=== PATIENT | male | born 1970 | race African-American/Black ===

== ENCOUNTER 2016-07-03 01:32 | Emergency (ER) | payer MEDICARE, OTHER ==
[~2016-07-03] VITALS: Ht 190.5 cm; Wt 181.8 kg
[2016-07-03] MEDS ORDERED: CELE200 PO (01:44)
[2016-07-03] MEDS ORDERED: LISI-662 PO (01:44)
[2016-07-03] MEDS ORDERED: TRAZ-147 PO (01:44)
[2016-07-03] MEDS ORDERED: ARMO150T6 PO (01:44)
[2016-07-03] MEDS ORDERED: SIMV-259 PO (01:44)
[2016-07-03] MEDS ORDERED: DULO20CA30 PO (01:44)
[2016-07-03] MEDS ORDERED: AMLO-511 PO (01:44)
[2016-07-03] MEDS ORDERED: MODA100 PO (01:44)
[2016-07-03 04:44] LABS: BASOPHILS % (AUTO) 0.5 % (0.0-2.0); EOSINOPHILS % (AUTO) 0.8 % (1.0-6.0); HEMATOCRIT 43.4 % (41-53); HEMOGLOBIN 13.7 g/dL (13.5-17.5); LYMPHOCYTES # (AUTO) 2.3 K/uL (1.0-4.8); LYMPHOCYTES % (AUTO) 22.9 % (22.0-44.0); MEAN CORPUSCULAR HEMOGLOBIN 26.3 pg (26.0-34.0); MEAN CORPUSCULAR HGB CONC 31.5 G/dL (31.0-37.0); MEAN CORPUSCULAR VOLUME 83 fL (80-100); MONOCYTES # (AUTO) 0.7 K/uL (0.1-1.0); MONOCYTES % (AUTO) 6.9 % (2.0-9.0); NEUTROPHILS % (AUTO) 68.9 % (40.0-70.0); PLATELET COUNT (AUTO) 220 K/uL (150-450); RED CELL DISTRIBUTION WIDTH 15.1 % (11.5-14.5); WHITE BLOOD COUNT (AUTO) 10.2 K/uL (4.5-11.0)
[2016-07-03 04:58] LABS: ANION GAP 9 mmol/L (8-16); CALCIUM, TOTAL 8.4 mg/dL (8.8-10.5); CARBON DIOXIDE 25 mmol/L (22-29); CHLORIDE 104 mmol/L (98-107); CREATININE 0.97 mg/dL (0.60-1.30); GLOMERULAR FILTR. RATE CALC > 60 mL/min (>60); POTASSIUM 4.1 mmol/L (3.5-5.1); SODIUM SERUM 138 mmol/L (136-145); UREA NITROGEN, BLOOD 10 mg/dL (7-18)
[2016-07-03 05:04] LABS: ALANINE AMINOTRANSFERASE 24 U/L (12-78); ALBUMIN 3.3 g/dL (3.4-5.0); ASPARTATE AMINOTRANSFERASE 19 U/L (15-37); BILIRUBIN,TOTAL 0.3 mg/dL (0.1-1.0); TOTAL PROTEIN, SERUM 7.8 g/dL (6.4-8.2)
[2016-07-03 06:50] VITALS: BP 133/52
== END 2016-07-03 07:19 | disposition home or self-care (01) ==
LOC: EMS 01:33
DX: F45.8 Other somatoform disorders (principal); I10 Essential (primary) hypertension; E78.00 Pure hypercholesterolemia, unspecified
CPT/HCPCS: 93005; 99285